=== PATIENT | female | born 1945 | race American Indian/Alaskan Native ===

== ENCOUNTER 2017-03-29 17:46 | Emergency (ER) | payer MEDICARE, OTHER ==
[~2017-03-29 17:46] MED LIST: ADVAIR 500-501 EACH INH; BP MED; CIPROFLOXACIN500 MG PO; CYCLOBENZAPRINE10 MG PO; GABAPENTIN300 MG PO; GABAPENTIN600 MG PO; HYDROCHLOROTHIA25 MG PO; LEVOTHYROXINE125 MCG PO; LISINOPRIL-HCT1 EACH PO; LISINOPRIL40 MG PO; NATURAL FIBER PO; NICOTINE PATCH1 EAC1 TD; NORCO 10-325 T1 EACH PO; OMEPRAZOLE20 MG PO; PROPRANOLOL HCL40 MG PO; PROVENTIL HFA6.7 GM INH; TRAZODONE HCL100 MG PO; VERAPAMIL ER120 M1 PO
--- NOTE | 2017-03-29 20:24 | NUR ---
WAS CALLED IN FOR CODE BLUE. PT HAD UPON [employer]. WAS TOLD THAT [place] [employer] WOULD BE NOTIFYING PT NOK. CALLED PT'S DAUGHTER WHO WAS TRYING TO GET A HOLD OF HER BROTHER WHO IS OUT OF TOWN. CALLED BACK TO CHECK IN WITH PT'S DAUGHTER WHO STATED THAT THE FAMILY WOULD NOT BE COMING IN TO SEE THE PT AND THAT THEY WANTED THE BODY SENT TO [facility]. BODY WAS RELEASED TO [facility] WITH ONE PAIR OF TENNIS SHOES, 5 MEDICATIONS IN A PLATIC BAGGIE, ONE WATCH, TWO BRACELETS, AND ONE RING.
== END 2017-03-29 20:10 ==
LOC: ED 17:46
DX: I46.9 Cardiac arrest, cause unspecified (principal); I10 Essential (primary) hypertension; E03.9 Hypothyroidism, unspecified; J44.9 Chronic obstructive pulmonary disease, unspecified; F17.200 Nicotine dependence, unspecified, uncomplicated; Z90.89 Acquired absence of other organs; Z90.710 Acquired absence of both cervix and uterus; Z79.2 Long term (current) use of antibiotics; Z79.899 Other long term (current) drug therapy
CPT/HCPCS: 96374; 96376; 99285; J0171